=== PATIENT | female | born 1995 | race Caucasian/White ===

== ENCOUNTER 2016-06-30 15:59 | Emergency (ER) | payer MEDICAID ==
[~2016-06-30] VITALS: Ht 157.5 cm; Wt 43.5 kg
[~2016-06-30 15:59] MED LIST: BENZ56AE TP; DOCU100C37 PO; FERR240T9 PO; FERR325C PO; HYDR-757 PO; IBP600T1 PO; IBUP-1780 PO; LORA1TAB PO; NAPR-243 PO; NITR-65 PO; OXYC-465 PO; PHN100C PO; PRD5T PO; PREN1TAB19 PO; SULF1TAB7 PO; [UNRECOGNIZED DRUG - CODE] PO
--- OUTSIDE RECORDS SUMMARY | 2016-06-30 16:03 | XMS REPORT | Continuity of Care Document ---
Author Author [facility] Organization [facility] Address Unknown Phone Unavailable Care Team Providers Care Annealer Name Role Phone MACARENA GRAY MD PCP Insurance Providers Payer Name Policy Number Subscriber Name Relationship [employer] [id number] Roya Adame N 18 Self / Same As Patient Advance Directives Directive Response Recorded Date/Time Advance Directives No 12/13/13 5:46pm Organ Donor Yes 12/13/13 5:46pm Resuscitation Status Full Code 12/13/13 5:46pm Problems Medical Problems Problem Onset Date Status Closed head injury Unknown Active Closed head injury Unknown Active Sprain of ankle, left Unknown Active Medications Medication Dose Route Sig Days/Qty Instructions Order Date Discontinued Date Status Phenytoin Sodium 100 Mg PO THREE TIMES A DAY 30 Qty 06/27/11 Active Lorazepam 1 Mg PO 05/10/12 Active Social History Social History Problem Response Recorded Date/Time Alcohol Use Denies Use 12/13/2013 5:46pm Recreational Drug Use No 12/13/2013 5:46pm Smoking Status Current Everyday Smoker 12/13/2013 5:46pm Query Response Start Date Stop Date Smoking Status Current Everyday Smoker Hospital Discharge Instructions No hospital discharge instructions. Plan of Care No plan of care. Functional Status No functional status results. Allergies, Adverse Reactions, Alerts Allergen Type Severity Reaction Status Last Updated No Known Drug Allergies Active 08/19/10 Immunizations Name Given Type Date of Influenza Vaccine 05/08/12 Historical Vital Signs Acute Vital Signs Vital Response Date/Time Temperature (Fahrenheit) 96.5 degrees F (97.6 - 99.5) Temperature Source Temporal Pulse Rate (Adolescent 12-19yrs) 74 bpm (56 - 106) Respiratory Rate (Adolescent 12-19yrs) 16 bpm (15 - 20) Blood Pressure / Blood Pressure Systolic (Adolescent 12-19yrs) 101 mm Hg (115 - 120) Pain Pain Intensity 7 Height (Feet) 5 feet Height (Inches) 2 inches Height (Calculated Centimeters) 157.745378 cm Weight (Pounds) 110 pounds Weight (Calculated Grams) 29715.754 gm Weight (Calculated Kilograms) 49.587985 kilograms Calculated BMI 20.12 Results Test Source Date Result Interp. Ref. Range Comments Acetaminophen Screen June 27, 2011 12:45pm NEGATIVE - APAP= ACETAMINOPHEN/PARACETAMOL Alanine Aminotransferase (ALT/SGPT) November 11, 2013 11:25pm 23 U/L N 0-55 Albumin November 11, 2013 11:25pm 4.1 G/DL N 3.2-4.5 Alkaline Phosphatase November 11, 2013 11:25pm 78 U/L N 60-350 Aspartate Amino Transf (AST/SGOT) November 11, 2013 11:25pm 18 U/L N 5-34 BUN/Creatinine Ratio November 11, 2013 11:25pm 21 - Basophils # (Auto) November 11, 2013 11:25pm 0.1 10^3/uL N 0.0-0.1 Basophils (%) (Auto) November 11, 2013 11:25pm 1 % N 0-10 Blood Urea Nitrogen November 11, 2013 11:25pm 17 MG/DL N 7-18 Calcium Level November 11, 2013 11:25pm 9.7 MG/DL N 8.5-10.1 Carbon Dioxide Level November 11, 2013 11:25pm 24 MMOL/L N 21-32 Chloride Level November 11, 2013 11:25pm 107 MMOL/L N 98-107 Creatinine November 11, 2013 11:25pm 0.80 MG/DL N 0.60-1.30 Eosinophils # (Auto) November 11, 2013 11:25pm 0.1 10^3/uL N 0.0-0.3 Eosinophils (%) (Auto) November 11, 2013 11:25pm 1 % N 0-10 Glucose Level November 11, 2013 11:25pm 88 MG/DL N 70-105 Hematocrit November 11, 2013 11:25pm 39 % N 35-52 Hemoglobin November 11, 2013 11:25pm 14.1 G/DL N 11.5-16.0 Lymphocytes # (Auto) November 11, 2013 11:25pm 1.7 X 10^3 N 1.0-4.0 Lymphocytes (%) (Auto) November 11, 2013 11:25pm 20 % N 12-44 Mean Corpuscular Hemoglobin November 11, 2013 11:25pm 32 PG N 25-34 Mean Corpuscular Hemoglobin Concent November 11, 2013 11:25pm 36 G/DL N 32- 36 Mean Corpuscular Volume November 11, 2013 11:25pm 88 FL N 80-99 Mean Platelet Volume November 11, 2013 11:25pm 9.1 FL N 7.4-10.4 Methadone Level July 23, 2011 9:37am NEG - Monocytes # (Auto) November 11, 2013 11:25pm 0.8 X 10^3 N 0.0-1.0 Monocytes (%) (Auto) November 11, 2013 11:25pm 9 % N 0-12 Neutrophils # (Auto) November 11, 2013 11:25pm 5.8 X 10^3 N 1.8-7.8 Neutrophils (%) (Auto) November 11, 2013 11:25pm 70 % N 42-75 Opiates Screen July 23, 2011 9:37am NEG - Platelet Count November 11, 2013 11:25pm 301 10^3/uL N 130-400 Potassium Level November 11, 2013 11:25pm 3.7 MMOL/L N 3.6-5.0 Red Blood Count November 11, 2013 11:25pm 4.47 10^6/uL N 4.35-5.85 Red Cell Distribution Width November 11, 2013 11:25pm 11.9 % N 10.0-14.5 Sodium Level November 11, 2013 11:25pm 141 MMOL/L N 135-145 Total Bilirubin November 11, 2013 11:25pm 0.7 MG/DL N 0.1-1.0 Total Protein November 11, 2013 11:25pm 7.4 G/DL N 6.4-8.2 Urine Acetaminophen Level July 23, 2011 9:37am NEG - Urine Drug Screen Other July 23, 2011 9:37am NEG - Interpretative data is available online at:[email or web address] Enter Test Number: [id number] URINE DRUG SCREEN FOR MEDICAL PURPOSES ONLY. Urine Marijuana (THC) July 23, 2011 9:37am NEG - CREATININE URINE INTERPRETIVE DATA No normal range is available for random urine creatinine. Values are affected by hydration and kidney function of the patient. Urine Phencyclidine (PCP) Level July 23, 2011 9:37am NEG - White Blood Count November 11, 2013 11:25pm 8.3 10^3/uL N 4.3-11.0 Urine Creatinine (Tox) July 23, 2011 9:37am 137 MG/DL - Estimat Glomerular Filtration Rate November 11, 2013 11:25pm > 60 - GFR INTERPRETIVE DATA UNITS FOR ESTIMATED GFR (eGFR): mL/min/1.73 M2 REFERENCE RANGE FOR ESTIMATED GFR (eGFR) eGFR NORMAL eGFR >60 MODERATELY DECREASED eGFR 30-59 SEVERLY DECREASED eGFR 15-29 KIDNEY FAILURE <15 (OR DIALYSIS) Urine Ethyl Alcohol Screen July 23, 2011 9:37am NEG - Interpretative data is available online at:[email or web address] Enter Test Number:[id number] Urine Salicylate Screen July 23, 2011 9:37am NEG - Procedures No known history of procedures. Encounters Encounter Location Date/Time Departed Emergency Room Via [facility] 12/13/13 5:39pm Recent Diagnosis
[2016-06-30 17:18] LABS: BASOPHILS % (AUTO) 1 % (0-10); EOSINOPHILS # (AUTO) 0.1 10^3/uL (0.0-0.3); EOSINOPHILS % (AUTO) 1 % (0-10); LYMPHOCYTES # (AUTO) 2.1 X 10^3 (1.0-4.0); LYMPHOCYTES % (AUTO) 24 % (12-44); MEAN CORPUSCULAR HEMOGLOBIN 30 PG (25-34); MEAN CORPUSCULAR HGB CONC 35 G/DL (32-36); MEAN CORPUSCULAR VOLUME 86 FL (80-99); MEAN PLATELET VOLUME 9.5 FL (7.4-10.4); MONOCYTES # (AUTO) 0.6 X 10^3 (0.0-1.0); MONOCYTES % (AUTO) 7 % (0-12); NEUTROPHILS % (AUTO) 68 % (42-75); PLATELET COUNT 301 10^3/uL (130-400); RED BLOOD COUNT 4.49 10^6/uL (4.35-5.85); WHITE BLOOD COUNT 8.9 10^3/uL (4.3-11.0)
[2016-06-30 17:19] LABS: BILIRUBIN,URINE NEGATIVE (NEGATIVE); KETONES,URINE NEGATIVE (NEGATIVE); LEUKOCYTE ESTERASE ,URINE 2+ (NEGATIVE); NITRITE,URINE NEGATIVE (NEGATIVE); PH,URINE 7 (5-9); PROTEIN,URINE 1+ (NEGATIVE); UROBILINOGEN,URINE 1 MG/DL (NORMAL)
[2016-06-30 17:34] LABS: SQUAMOUS EPITHELIAL CELL,UR >50 /HPF
[2016-06-30 17:41] LABS: ALANINE AMINOTRANSFERASE 11 U/L (0-55); ALBUMIN 4.4 G/DL (3.2-4.5); ANION GAP 10 MMOL/L (5-14); ASPARTATE AMINO TRANSFERASE 14 U/L (5-34); BILIRUBIN,TOTAL 0.6 MG/DL (0.1-1.0); BLOOD UREA NITROGEN 13 MG/DL (7-18); BUN/CREATININE RATIO 18; CALCIUM 9.4 MG/DL (8.5-10.1); CARBON DIOXIDE 18 MMOL/L (21-32); CHLORIDE 110 MMOL/L (98-107); CREATININE SERUM 0.73 MG/DL (0.60-1.30); GFR ESTIMATED > 60; GLUCOSE 107 MG/DL (70-105); POTASSIUM 3.7 MMOL/L (3.6-5.0); SODIUM 138 MMOL/L (135-145); TOTAL PROTEIN 7.1 G/DL (6.4-8.2)
--- NOTE | 2016-06-30 17:49 | ED Neurological Problem ---
General Chief Complaint: Neurological Problems Stated Complaint: SEIZURE Nursing Triage Note: Pt to triage room via wheelchair. Male w/ pt states pt has been having a "seizure" just [employer] DES[employer]IST and has continued to get worse while in ED waiting room. Pt' s eyes open and pt able to answer questions, pt stutters when talking. Shaking of upper and lower extremities noted. Pt making purposeful movements with all extremities. Pt reports prior hx seizures and states she does not currently take any seizure medications. Nursing Sepsis Screen: No Definite Risk Source: patient Exam Limitations: no limitations History of Present Illness Time seen by provider: 17:48 Initial Comments To ER with reports of a seizure today. She states that she was sitting on a couch with some friends at home when she felt her seizure come on. This seizure manifested as "I was stuck inside my head" which is however her seizures have presented in the past and were treated with lorazepam. Timing/Duration: 4-6 hours Severity: mild Associated Symptoms: No confusion, No nausea/vomiting, No numbness in legs/feet , seizures Allergies and Home Medications Allergies Coded Allergies: No Known Drug Allergies (Unverified , 08/19/10) Home Medications Docusate Sodium 100 Mg Capsule #60 100 MG PO BID Prescribed by: BRITT MCGUIRE on 12/10/151948 Hydrocodone/Acetaminophen 1 Each Tablet #20 1 EACH PO Q6H PRN PRN BREAKTHROUGH PAIN Prescribed by: CHERYL BREAUX on 03/09/16 1507 Ibuprofen 800 Mg Tablet #60 800 MG PO Q6H Prescribed by: BRITT MCGUIRE on 12/10/151948 Oxycodone HCl/Acetaminophen 1 Each Tablet #30 1-2 TAB PO Q4H PRN PRN PAIN Prescribed by: BRITT MCGUIRE on 12/10/151948 Vit/Fe Fumarate/Fa 1 Each Tablet 1 EACH PO DAILY (Reported) Constitutional: see HPI Eyes: No Symptoms Reported Ears, Nose, Mouth, Throat: no symptoms reported Respiratory: no symptoms reported Cardiovascular: no symptoms reported Genitourinary: no symptoms reported Musculoskeletal: no symptoms reported Skin: no symptoms reported Psychiatric/Neurological: See HPI Endocrine: No Symptoms Reported Past Qokwqkg-Swqkwj-Bljvqd Hx Patient Social History Alcohol Use: Denies Use Recreational Drug Use: No Smoking Status: Current Everyday Smoker Type Used: Cigarettes Recent Foreign Travel: No Contact w/Someone Who Travel: No Recent Infectious Disease Expo: No Recent Hopitalizations: No Immunizations Up To Date Tetanus Booster (TDap): Unknown PED Vaccines UTD: No Date of Influenza Vaccine: Feb 02, 2014 Seasonal Allergies Seasonal Allergies: Yes Surgeries HX Surgeries: No Respiratory Hx Respiratory Disorders: No Cardiovascular Hx Cardiac Disorders: No Neurological Hx Neurological Disorders: Yes Neurological Disorders: Seizure Disorder Reproductive System Hx Reproductive Disorders: No Sexually Transmitted Disease: No HIV/AIDS: No Female 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 Genitourinary Hx Genitourinary Disorders: No Gastrointestinal Hx Gastrointestinal Disorders: No Musculoskeletal Hx Musculoskeletal Disorders: No Endocrine Hx Endocrine Disorders: No HEENT HX ENT Disorders: No Cancer Hx Cancer: No Psychosocial Hx Psychiatric Problems: No Integumentary HX Skin/Integumentary Disorder: No Blood Transfusions Hx Blood Disorders: No Adverse Reaction to a Blood Tr: No Family Medical History Family Medial History: Alcoholism 19 FATHER (father) Colon cancer 19 MOTHER (maternal great grandmother ) Diabetes mellitus 19 FATHER (paternal grandmother.,) Headache disorder 19 MOTHER (mother) Hypercholesterolemia 19 MOTHER (mother) Hypertension 19 MOTHER (maternal great grandfather) Kidney disease 19 MOTHER (maternal grandmother) No Family History of: AIDS Abdominal aortic aneurysm [place]'s disease Alzheimer's disease Aphasia Arthritis Asthma Cancer of mouth Cardiovascular disease Cataracts Completed stroke Congenital disease Congenital heart disease Coronary thrombosis Cystic fibrosis Deafness or hearing loss Dementia Drug abuse Dysphasia Fibrocystic disease of breast Gastroenteritis Glaucoma Infertility Myocardial infarction Neoplasm Not obtainable due to adoption Osteoporosis Parkinson's disease Prostate cancer Psychosocial problem Respiratory disorder Seizure disorder Severe allergy Thyroid disease Tuberculosis Visual disorder Physical Exam Vital Signs Vital Sign - Last 12Hours 06/30/16 16:43 Temp 98.0 Pulse 92 Resp 18 B/P 108/65 Pulse Ox 97 O2 Delivery Room Air Capillary Refill : Less Than 3 Seconds General Appearance: WD/WN no apparent distress HEENT: PERRL/EOMI normal ENT inspection Neck: non-tender full range of motion Respiratory: no respiratory distress no accessory muscle use Cardiovascular: regular rate, rhythm no murmur Gastrointestinal: normal bowel sounds non tender soft Neurologic/Psychiatric: alert normal mood/affect oriented x 3 Crainal Nerves: normal hearing normal speech PERRL Focused Exam Lactic Acid Level Laboratory Tests Test 06/30/16 17:11 Alanine Aminotransferase (ALT/SGPT) 11U/L (0-55) Albumin 4.4G/DL (3.2-4.5) Alkaline Phosphatase 65U/L (40-136) Anion Gap 10MMOL/L (5-14) Aspartate Amino Transf (AST/SGOT) 14U/L (5-34) BUN/Creatinine Ratio 18 Blood Urea Nitrogen 13MG/DL (7-18) Calcium Level 9.4MG/DL (8.5-10.1) Carbon Dioxide Level 18MMOL/L (21-32) L Chloride Level 110MMOL/L (98-107) H Creatinine 0.73MG/DL (0.60-1.30) Estimat Glomerular Filtration Rate > 60 Glucose Level 107MG/DL (70-105) H Potassium Level 3.7MMOL/L (3.6-5.0) Sodium Level 138MMOL/L (135-145) Total Bilirubin 0.6MG/DL (0.1-1.0) Total Protein 7.1G/DL (6.4-8.2) Progress/Results/Core Measures Results/Orders Lab Results Laboratory Tests Test 06/30/16 17:11 Range/Units Alanine Aminotransferase (ALT/SGPT) 11 0-55 U/L Albumin 4.4 3.2-4.5 G/DL Alkaline Phosphatase 65 40-136 U/L Anion Gap 10 5-14 MMOL/L Aspartate Amino Transf (AST/SGOT) 14 5-34 U/L BUN/Creatinine Ratio 18 Basophils # (Auto) 0.0 0.0-0.1 10^3/uL Basophils (%) (Auto) 1 0-10 % Blood Urea Nitrogen 13 7-18 MG/DL Calcium Level 9.4 8.5-10.1 MG/DL Carbon Dioxide Level 18 L 21-32 MMOL/L Chloride Level 110 H 98-107 MMOL/L Creatinine 0.73 0.60-1.30 MG/DL Eosinophils # (Auto) 0.1 0.0-0.3 10^3/uL Eosinophils (%) (Auto) 1 0-10 % Estimat Glomerular Filtration Rate > 60 Glucose Level 107 H 70-105 MG/DL Hematocrit 39 35-52 % Hemoglobin 13.4 11.5-16.0 G/DL Lymphocytes # (Auto) 2.1 1.0-4.0 X 10^3 Lymphocytes (%) (Auto) 24 12-44 % Mean Corpuscular Hemoglobin 30 25-34 PG Mean Corpuscular Hemoglobin Concent 35 32-36 G/DL Mean Corpuscular Volume 86 80-99 FL Mean Platelet Volume 9.5 7.4-10.4 FL Monocytes # (Auto) 0.6 0.0-1.0 X 10^3 Monocytes (%) (Auto) 7 0-12 % Neutrophils # (Auto) 6.0 1.8-7.8 X 10^3 Neutrophils (%) (Auto) 68 42-75 % Platelet Count 301 130-400 10^3/uL Potassium Level 3.7 3.6-5.0 MMOL/L Red Blood Count 4.49 4.35-5.85 10^6/uL Red Cell Distribution Width 13.0 10.0-14.5 % Sodium Level 138 135-145 MMOL/L Total Bilirubin 0.6 0.1-1.0 MG/DL Total Protein 7.1 6.4-8.2 G/DL Ur Tricyclic Antidepressants Screen NEGATIVE NEGATIVE Urine Amphetamines Screen NEGATIVE NEGATIVE Urine Bacteria FEW H /HPF Urine Barbiturates Screen NEGATIVE NEGATIVE Urine Benzodiazepines Screen NEGATIVE NEGATIVE Urine Bilirubin NEGATIVE NEGATIVE Urine Cannabinoids Screen POSITIVE H NEGATIVE Urine Casts NONE /LPF Urine Clarity SLIGHTLY CLOUDY Urine Cocaine Screen NEGATIVE NEGATIVE Urine Color YELLOW Urine Crystals NONE /LPF Urine Culture Indicated YES Urine Glucose (UA) NEGATIVE NEGATIVE Urine Ketones NEGATIVE NEGATIVE Urine Leukocyte Esterase 2+ H NEGATIVE Urine Methadone Screen NEGATIVE NEGATIVE Urine Methamphetamines Screen NEGATIVE NEGATIVE Urine Mucus MODERATE H /LPF Urine Nitrite NEGATIVE NEGATIVE Urine Opiates Screen NEGATIVE NEGATIVE Urine Oxycodone Screen NEGATIVE NEGATIVE Urine Phencyclidine Screen NEGATIVE NEGATIVE Urine Propoxyphene Screen NEGATIVE NEGATIVE Urine Protein 1+ H NEGATIVE Urine RBC 10-25 H /HPF Urine RBC (Auto) 2+ H NEGATIVE Urine Specific [place] 1.015 L 1.016-1.022 Urine Squamous Epithelial Cells >50 H /HPF Urine Urobilinogen 1 NORMAL MG/DL Urine WBC 5-10 H /HPF Urine pH 7 5-9 White Blood Count 8.9 4.3-11.0 10^3/uL My Orders Orders-TANK DE JESUS [employer] Cbc With Automated Diff (06/30/16 16:52) Comprehensive Metabolic Panel (06/30/16 16:52) Ua Culture If Indicated (06/30/16 16:52) Drug Screen Stat (Urine) (06/30/16 16:52) Saline Lock/Iv-Start (06/30/16 16:52) Urine Culture (06/30/16 17:11) Lorazepam Injection (Ativan Injection) (06/30/16 18:00) Vital Signs/I&O Vital Sign - Last 12Hours 06/30/16 16:43 Temp 98.0 Pulse 92 Resp 18 B/P 108/65 Pulse Ox 97 O2 Delivery Room Air Blood Pressure Mean: 79 Departure Impression Impression: Primary Impression: Urinary tract infection Qualified Code: N30.00 - Acute cystitis without hematuria Disposition: HOME, SELF-CARE Condition: Stable Departure-Patient Inst. Decision time for Depature: 17:57 Referrals: NO,LOCAL PHYSICIAN (PCP/Family) Primary Care Physician Patient Instructions: Urinary Tract Infection, Adult (DC) Add. Discharge Instructions: All discharge instructions reviewed with patient and/or family. Voiced understanding. Scripts Sulfamethoxazole/Trimethoprim (Bactrim Ds Tablet)1 Each Tablet1 Each PO BID #10 TAB Prov:TANK DE JESUS APRN 06/30/16 TANK DE JESUS APRN Jun 30, 2016 17:49
[2016-06-30] MEDS ORDERED: SULF1TAB35 PO (17:58)
[2016-06-30] MEDS ORDERED: TRIM/SULFAMETH 160/800 (SEPTRA DS) TAB PO ONE (18:00)
[2016-06-30] MEDS ORDERED: LORazepam INJ 2 MG/ML (ATIVAN) VIAL IVP ONE (18:00)
[2016-06-30 18:22] VITALS: BP 102/60
== END 2016-06-30 18:22 | disposition home or self-care (01) ==
LOC: EDUNIT# 15:59 → ER 16:00
DX: G40.909 Epilepsy, unspecified, not intractable, without status epilepticus (principal); N30.91 Cystitis, unspecified with hematuria; F17.210 Nicotine dependence, cigarettes, uncomplicated
CPT/HCPCS: 36415; 80053; 80306; 81000; 85025; 87088; 96374

== ENCOUNTER 2019-04-01 14:48 | Emergency (ER) | payer SELFPAY ==
[~2019-04-01] VITALS: Ht 157 cm; Wt 43.0 kg
[~2019-04-01 14:48] MED LIST changes: +HYDR-4226 PO; -HYDR-757 PO; +SULF1TAB35 PO
[2019-04-01] MEDS ORDERED: IBUPROFEN TABLET 200 MG TAB PO STA (15:26)
--- NOTE | 2019-04-01 15:34 | ED Upper Extremity ---
General Chief Complaint: Upper Extremity Stated Complaint: POSS HAND INJ Nursing Triage Note: PT STATES ABOUT A WEEK AGO SHE HIT A SHEETROCK WALL ON THE CORNER WITH HER RT HAND, CC OF PAIN IN THE FIFTH DIGIT AND INTO WRIST. Nursing Sepsis Screen: No Definite Risk History of Present Illness Date Seen by Provider: Apr 01, 2019 Time Seen by Provider: 15:20 Initial Comments 23 year old female presents for right writs and hand pain, along the 5th metacarpal. She reports hitting a sheetrock wall approximately one week ago. Had some pain initially, but was tolerable, began to get worse today. She has not taken any Tylenol or ibuprofen for the pain. She is right-hand dominant. She denies any previous history of injuries to her right upper extremity. Onset: last week Pain/Injury Location: right wrist, right hand Method of Injury: direct blow Modifying Factors: Improves With Rest Allergies and Home Medications Allergies Coded Allergies: No Known Drug Allergies (Unverified , 08/19/10) Home Medications Docusate Sodium 100 Mg Capsule, 100 MG PO BID Prescribed by: BRITT MCGUIRE on 12/10/151948 Hydrocodone/Acetaminophen 1 Each Tablet, 1 EACH PO Q6H PRN for BREAKTHROUGH PAIN Prescribed by: CHERYL BREAUX on 03/09/16 1507 Ibuprofen 800 Mg Tablet, 800 MG PO Q6H Prescribed by: BRITT MCGUIRE on 12/10/151948 Oxycodone HCl/Acetaminophen 1 Each Tablet, 1-2 TAB PO Q4H PRN for PAIN Prescribed by: BRITT MCGUIRE on 12/10/151948 Vit/Fe Fumarate/Fa 1 Each Tablet, 1 EACH PO DAILY, (Reported) Sulfamethoxazole/Trimethoprim 1 Each Tablet, 1 EACH PO BID Prescribed by: TANK DE JESUS on 06/30/16 1758 Patient Home Medication List Home Medication List Reviewed: Yes Review of Systems Constitutional: no symptoms reported, see HPI Musculoskeletal: see HPI, joint pain (right wrist ulnar side), joint swelling (fifth MCP, right hand.) All Other Systems Reviewed Negative Unless Noted: Yes Past Ecuvbdd-Etupvy-Yvvchv Hx Past Med/Social Hx: Reviewed Nursing Past Med/Soc Hx Patient Social History Alcohol Use: Rarely Uses Recreational Drug Use: No Smoking Status: Current Someday Smoker Type Used: Cigarettes Recent Foreign Travel: No Contact w/Someone Who Travel: No Recent Infectious Disease Expo: No Recent Hopitalizations: No Physical Abuse: No Sexual Abuse: No Mistreated: No Fear: No Immunizations Up To Date Tetanus Booster (TDap): Unknown PED Vaccines UTD: No Date of Influenza Vaccine: Feb 02, 2014 Seasonal Allergies Seasonal Allergies: Yes Past Medical History Surgeries: No Respiratory: No Cardiac: No Neurological: Yes Seizure Disorder : No (IUD) Last Menstrual Period: Mar 29, 2019 Reproductive Disorders: No Female Reproductive Disorders: Denies [employer]CHITECT History: IUD Sexually Transmitted Disease: No HIV/AIDS: No Genitourinary: No Gastrointestinal: No Musculoskeletal: No Endocrine: No HEENT: No Cancer: No Psychosocial: No Integumentary: No Blood Disorders: No Adverse Reaction/Blood Tranf: No Family Medical History Alcoholism 19 FATHER (father) Colon cancer 19 MOTHER (maternal great grandmother ) Diabetes mellitus 19 FATHER (paternal grandmother.,) Headache disorder 19 MOTHER (mother) Hypercholesterolemia 19 MOTHER (mother) Hypertension 19 MOTHER (maternal great grandfather) Kidney disease 19 MOTHER (maternal grandmother) No Family History of: AIDS Abdominal aortic aneurysm Kostas's disease Alzheimer's disease Aphasia Arthritis Asthma Cancer of mouth Cardiovascular disease Cataracts Completed stroke Congenital disease Congenital heart disease Coronary thrombosis Cystic fibrosis Deafness or hearing loss Dementia Drug abuse Dysphasia Fibrocystic disease of breast Gastroenteritis Glaucoma Infertility Myocardial infarction Neoplasm Not obtainable due to adoption Osteoporosis Parkinson's disease Prostate cancer Psychosocial problem Respiratory disorder Seizure disorder Severe allergy Thyroid disease Tuberculosis Visual disorder Physical Exam Vital Signs Vital Signs - First Documented 04/01/19 15:04 Temp 36.5 Pulse 70 Resp 18 B/P (MAP) 111/75 (87) Pulse Ox 100 O2 Delivery Room Air Capillary Refill : Less Than 3 Seconds Height, Weight, BMI Height: 5'2" Weight: 96lbs. 3.0oz. 43.247961uy; 17.00 BMI Method:Stated General Appearance: WD/WN, no apparent distress Cardiovascular: normal peripheral pulses, regular rate, rhythm Respiratory: chest non-tender, lungs clear, normal breath sounds Wrist: Yes normal inspection, Yes normal ROM, Yes bone tenderness (distal ulna); No deformity, No limited ROM Hand: normal inspection, normal ROM, Right, bone tenderness (fifth metacarpal), soft tissue tenderness Neurologic/Tendon: normal sensation, normal motor functions, normal tendon functions Neurologic/Psychiatric: no motor/sensory deficits, alert, normal mood/affect, oriented x 3 Progress/Results/Core Measures Results/Orders My Orders Orders - NADYA ALCARAZ Wrist, Right, 3 Views Or More (04/01/19 15:26) Hand, Right, 3 Views (04/01/19 15:26) Urine Bedside (04/01/19 15:26) Ibuprofen Tablet (Motrin Tablet) (04/01/19 15:26) Vital Signs/I&O 04/01/19 04/01/19 15:04 15:34 Temp 36.5 36.5 Pulse 70 Resp 18 B/P (MAP) 111/75 (87) Pulse Ox 100 O2 Delivery Room Air Blood Pressure Mean: 87 Diagnostic Imaging Diagonstic Imaging: Xray Plain Films/CT/US/NM/MRI: other Comments NAME: BERNYNOELLE N MED REC#: [id number] PT STATUS: REG ER : 1995 PHYSICIAN: NADYA ALCARAZ ADMIT DATE: 04/01/19/ER Signed Date of Exam:04/01/19 WRIST, RIGHT, 3 VIEWS OR MORE Indication: Right wrist injury 3 views the right wrist show no fracture, dislocation or other acute abnormalities. IMPRESSION: Negative right wrist Dictated by: Dictated on workstation # [id number] Dict: 04/01/19 155 Trans: 04/01/19 1552 [id number] Interpreted by: KAT VIVAR MD Electronically signed by: KAT VIVAR MD 04/01/19 155 Reviewed: Reviewed by Me Diagonstic Imaging: Xray Plain Films/CT/US/NM/MRI: hand Comments NAME: SCARVERENANOELLE N MED REC#: [id number] PT STATUS: REG ER : 1995 PHYSICIAN: NADYA ALCARAZ ADMIT DATE: 04/01/19/ER Signed Date of Exam:04/01/19 HAND, RIGHT, 3 VIEWS Indication: Right hand injury 3 views of the right hand show no fracture, dislocation or other acute abnormalities. IMPRESSION: Negative right hand Dictated by: Dictated on workstation # [id number] Dict: 04/01/19 1553 Trans: 04/01/19 1553 [id number] Interpreted by: KAT VIVAR MD Electronically signed by: KAT VIVAR MD 04/01/19 1553 Reviewed: Reviewed by Me Departure Impression Primary Impression: Contusion of multiple sites of right hand and wrist Qualified Codes: S60.221A - Contusion of right hand, initial encounter; S60.211A - Contusion of right wrist, initial encounter Disposition: HOME, SELF-CARE Condition: Improved Departure-Patient Inst. Decision time for Depature: 16:00 Referrals: [facility],LOCAL PHYSICIAN (PCP) Primary Care Physician Patient Instructions: Hand Pain (DC), Wrist Sprain (DC) Add. Discharge Instructions: Ice to right hand and wrist 20 minutes every 2 hours while awake. Alternate between Tylenol 650 mg and ibuprofen 600 mg every 4 hours for pain. Rodrigue wrap to right hand and wrist as needed. Follow-up with the primary care provider if your symptoms are not improving or worsen. Return to the emergency department for new, urgent health care needs. All discharge instructions reviewed with patient and/or family. Voiced understanding. NADYA ALCARAZ Apr 01, 2019 15:34
--- NOTE | 2019-04-01 15:54 | Diagnostic Imaging Report ---
Indication: Right hand injury 3 views of the right hand show no fracture, dislocation or other acute abnormalities. IMPRESSION: Negative right hand Dictated by: Dictated on workstation # [id number]
--- NOTE | 2019-04-01 15:54 | Diagnostic Imaging Report ---
Indication: Right wrist injury 3 views the right wrist show no fracture, dislocation or other acute abnormalities. IMPRESSION: Negative right wrist Dictated by: Dictated on workstation # [id number]
[2019-04-01 16:14] VITALS: BP 111/75
== END 2019-04-01 16:14 | disposition home or self-care (01) ==
LOC: EDUNIT# 14:48 → ER 14:49
DX: S60.221A Contusion of right hand, initial encounter (principal); S60.211A Contusion of right wrist, initial encounter; G40.909 Epilepsy, unspecified, not intractable, without status epilepticus; F17.210 Nicotine dependence, cigarettes, uncomplicated; Z80.0 Family history of malignant neoplasm of digestive organs; Z82.49 Family history of ischemic heart disease and other diseases of the circulatory system; W22.8XXA Striking against or struck by other objects, initial encounter
CPT/HCPCS: 73110; 73130; 84703

== ENCOUNTER 2020-10-04 16:19 | Emergency (ER) | payer SELFPAY ==
[~2020-10-04] VITALS: Ht 157.5 cm; Wt 42.2 kg
[~2020-10-04 16:19] MED LIST changes: -OXYC-465 PO; +OXYC-556 PO
--- NOTE | 2020-10-04 16:31 | ED Abdominal Pain ---
General Stated Complaint: R SIDE PAIN / FEVER Source of Information: Patient Exam Limitations: No Limitations History of Present Illness Date Seen by Provider: Oct 04, 2020 Time Seen by Provider: 16:45 Initial Comments This is a well appearing 25 yo female who presented to the ER with c/o right flank pain, dysuria, and fever x 3 days. Pain is 8/10, sharp, and constant. Applied Deep Blue and soaked in Epsom salt bath. Reports some nausea without emesis. LMP ended yesterday. Allergies and Home Medications Allergies Coded Allergies: No Known Drug Allergies (Unverified , 08/19/10) Home Medications Ciprofloxacin HCl 500 Mg Tablet, 500 MG PO BID Prescribed by: GEORGE MONTOYA on 10/04/201909 Docusate Sodium 100 Mg Capsule, 100 MG PO BID Prescribed by: BRITT MCGUIRE on 12/10/151948 Hydrocodone/Acetaminophen 1 Each Tablet, 1 EACH PO Q6H PRN for BREAKTHROUGH PAIN Prescribed by: CHERYL BREAUX on 03/09/16 1507 Ibuprofen 800 Mg Tablet, 800 MG PO Q6H Prescribed by: BRITT MCGUIRE on 12/10/151948 Oxycodone HCl/Acetaminophen 1 Each Tablet, 1-2 TAB PO Q4H PRN for PAIN Prescribed by: BRITT MCGUIRE on 12/10/151948 Vit/Fe Fumarate/Fa 1 Each Tablet, 1 EACH PO DAILY, (Reported) Sulfamethoxazole/Trimethoprim 1 Each Tablet, 1 EACH PO BID Prescribed by: TANK DE JESUS on 06/30/161757 Patient Home Medication List Home Medication List Reviewed: Yes Review of Systems Review of Systems Constitutional: chills, fever EENTM: No Symptoms Reported Respiratory: No Symptoms Reported Cardiovascular: No Symptoms Reported Gastrointestinal: See HPI Genitourinary: See HPI Musculoskeletal: no symptoms reported Skin: no symptoms reported Psychiatric/Neurological: No Symptoms Reported Endocrine: No Symptoms Reported Hematologic/Lymphatic: No Symptoms Reported Past Unkuetj-[id number]-[id number] Hx Patient Social History Type Used: Cigarettes Recent Hopitalizations: No Immunizations Up To Date Tetanus Booster (TDap): Unknown PED Vaccines UTD: No Date of Influenza Vaccine: Feb 02, 2014 Seasonal Allergies Seasonal Allergies: Yes Past Medical History Surgeries: No Respiratory: No Cardiac: No Neurological: Yes Seizure Disorder Reproductive Disorders: No Female Reproductive Disorders: Denies [employer] History: IUD Sexually Transmitted Disease: No HIV/AIDS: No Genitourinary: No Gastrointestinal: No Musculoskeletal: No Endocrine: No HEENT: No Cancer: No Psychosocial: No Integumentary: No Blood Disorders: No Adverse Reaction/Blood Tranf: No Family Medical History Alcoholism 19 FATHER (father) Colon cancer 19 MOTHER (maternal great grandmother ) Diabetes mellitus 19 FATHER (paternal grandmother.,) Headache disorder 19 MOTHER (mother) Hypercholesterolemia 19 MOTHER (mother) Hypertension 19 MOTHER (maternal great grandfather) Kidney disease 19 MOTHER (maternal grandmother) No Family History of: AIDS Abdominal aortic aneurysm [place]'s disease Alzheimer's disease Aphasia Arthritis Asthma Cancer of mouth Cardiovascular disease Cataracts Completed stroke Congenital disease Congenital heart disease Coronary thrombosis Cystic fibrosis Deafness or hearing loss Dementia Drug abuse Dysphasia Fibrocystic disease of breast Gastroenteritis Glaucoma Infertility Myocardial infarction Neoplasm Not obtainable due to adoption Osteoporosis Parkinson's disease Prostate cancer Psychosocial problem Respiratory disorder Seizure disorder Severe allergy Thyroid disease Tuberculosis Visual disorder Physical Exam Vital Signs Vital Signs - First Documented 10/04/20 16:45 Temp 37.4 Pulse 112 Resp 18 B/P (MAP) 106/66 (79) Pulse Ox 97 O2 Delivery Room Air Capillary Refill : Height/Weight/BMI Height: 5'2" Weight: 96lbs. 3.0oz. [id number]; 17.00 BMI Method:Stated General Appearance: WD/WN, no apparent distress HEENT: PERRL/EOMI, normal ENT inspection Neck: full range of motion, normal inspection Respiratory: lungs clear, normal breath sounds Cardiovascular: regular rate, rhythm, no murmur Gastrointestinal: normal bowel sounds, soft; No rebound Extremities: normal range of motion, normal inspection Back: normal inspection, no vertebral tenderness, CVA tenderness (R) Neurologic/Psychiatric: no motor/sensory deficits, alert, normal mood/affect, oriented x 3 Skin: normal color, warm/dry Progress/Results/Core Measures Results/Orders Lab Results Laboratory Tests Test 10/04/20 16:45 10/04/20 16:52 Range/Units Urine Color YELLOW Urine Clarity CLEAR Urine pH 6.0 5-9 Urine Specific [place] 1.025 H 1.016-1.022 Urine Protein 2+ H NEGATIVE Urine Glucose (UA) NEGATIVE NEGATIVE Urine Ketones TRACE H NEGATIVE Urine Nitrite NEGATIVE NEGATIVE Urine Bilirubin NEGATIVE NEGATIVE Urine Urobilinogen 4.0 < = 1.0 MG/DL Urine Leukocyte Esterase 2+ H NEGATIVE Urine RBC (Auto) 2+ H NEGATIVE Urine RBC 0-2 /HPF Urine WBC TNTC H /HPF Urine Squamous Epithelial Cells 5-10 /HPF Urine Crystals NONE /LPF Urine Bacteria MODERATE H /HPF Urine Casts NONE /LPF Urine Mucus MODERATE H /LPF Urine Culture Indicated YES White Blood Count 13.1 H 4.3-11.0 10^3/uL Red Blood Count 4.63 3.80-5.11 10^6/uL Hemoglobin 14.4 11.5-16.0 g/dL Hematocrit 42 35-52 % Mean Corpuscular Volume 90 80-99 fL Mean Corpuscular Hemoglobin 31 25-34 pg Mean Corpuscular Hemoglobin Concent 34 32-36 g/dL Red Cell Distribution Width 11.5 10.0-14.5 % Platelet Count 274 130-400 10^3/uL Mean Platelet Volume 9.4 9.0-12.2 fL Immature Granulocyte % (Auto) 0 % Neutrophils (%) (Auto) 80 H 42-75 % Lymphocytes (%) (Auto) 10 L 12-44 % Monocytes (%) (Auto) 9 0-12 % Eosinophils (%) (Auto) 0 0-10 % Basophils (%) (Auto) 0 0-10 % Neutrophils # (Auto) 10.5 H 1.8-7.8 10^3/uL Lymphocytes # (Auto) 1.3 1.0-4.0 10^3/uL Monocytes # (Auto) 1.2 H 0.0-1.0 10^3/uL Eosinophils # (Auto) 0.0 0.0-0.3 10^3/uL Basophils # (Auto) 0.0 0.0-0.1 10^3/uL Immature Granulocyte # (Auto) 0.0 0.0-0.1 10^3/uL Sodium Level 141 135-145 MMOL/L Potassium Level 3.4 L 3.6-5.0 MMOL/L Chloride Level 102 98-107 MMOL/L Carbon Dioxide Level 24 21-32 MMOL/L Anion Gap 15 H 5-14 MMOL/L Blood Urea Nitrogen 13 7-18 MG/DL Creatinine 0.74 0.60-1.30 MG/DL Estimat Glomerular Filtration Rate > 60 BUN/Creatinine Ratio 18 Glucose Level 107 H 70-105 MG/DL Calcium Level 10.1 8.5-10.1 MG/DL Corrected Calcium 8.5-10.1 MG/DL Total Bilirubin 1.1 H 0.1-1.0 MG/DL Aspartate Amino Transf (AST/SGOT) 13 5-34 U/L Alanine Aminotransferase (ALT/SGPT) 10 0-55 U/L Alkaline Phosphatase 69 40-136 U/L C-Reactive Protein High Sensitivity 12.52 H 0.00-0.50 MG/DL Total Protein 8.1 6.4-8.2 GM/DL Albumin 4.6 H 3.2-4.5 GM/DL Micro Results Microbiology 10/04/20 Urine Culture - Preliminary, Resulted Gram Negative Bacillus 1 My Orders Orders - GEORGE MONTOYA APRN Ua Culture If Indicated (10/04/20 16:24) Urine Bedside (10/04/20 16:24) Ketorolac Injection (Toradol Injection) (10/04/20 17:30) Ondansetron Injection (Zofran Injectio (10/04/20 17:30) Cbc With Automated Diff (10/04/20 17:21) Comprehensive Metabolic Panel (10/04/20 17:21) Hs C Reactive Protein (10/04/20 17:21) Ct Abdomen/Pelvis W (10/04/20 17:21) Iohexol Injection (Omnipaque 350 Mg/Ml 1 (10/04/20 17:30) Received Contrast (Hold Metformin- Contr (10/04/20 17:30) Ns (Ivpb) (Sodium Chloride 0.9% Ivpb Bag (10/04/20 17:30) Urine Culture (10/04/20 16:45) Ceftriaxone (Rocephin) (10/04/20 19:15) Medications Given in ED Vital Signs/I&O 10/04/20 10/04/20 16:45 19:51 Temp 37.4 Pulse 112 94 Resp 18 16 B/P (MAP) 106/66 (79) 107/71 Pulse Ox 97 98 O2 Delivery Room Air Room Air Diagnostic Imaging Plain Films/CT/US/NM/MRI: abdomen, pelvis Comments [facility]. [place], [place] NAME: NOELLE ARRIETA [facility] REC#: [id number] PT STATUS: REG ER : 1995 PHYSICIAN: GEORGE MONTOYA WARRANTY CLERK ADMIT DATE: 10/04/20/ER Signed Date of Exam:10/04/20 CT ABDOMEN/PELVIS W EXAMINATION: CT abdomen and pelvis with intravenous contrast. TECHNIQUE: Multiple contiguous axial images were obtained through the abdomen and pelvis after the uneventful administration of intravenous contrast. All CT scans use one or more of the following dose optimizing techniques: automated exposure control, MA and/or KvP adjustment based on patient size and exam type or iterative reconstruction. HISTORY: RLQ abdominal pain COMPARISON: None available. FINDINGS: Lung bases: The lung bases are clear. Solid organs: The liver is normal without focal lesion. The gallbladder is normal. There is no biliary ductal dilation. Pancreas is normal. Spleen is normal. Adrenal glands are normal. There are patchy areas of cortical hypoattenuation within the right kidney. The left kidney is unremarkable. No hydronephrosis. Bowel: The stomach and small bowel are normal without obstruction. The colon and appendix are normal. Peritoneum: There is no intraperitoneal free fluid or free air. No suspicious lymphadenopathy. Vasculature: Normal without aneurysm. Musculoskeletal: No suspicious osseous lesion or compression fracture. Pelvis: An IUD is present within the uterine fundus. The urinary bladder is normal. IMPRESSION: 1. A striated nephrogram of the right kidney which is concerning for pyelonephritis. Recommend correlation with urinalysis and patient history. 2. No other acute abnormality in the abdomen or pelvis. Dictated by: Dictated on workstation # [id number] Dict: 10/04/20 184 Trans: 10/04/201901 [facility] [id number] Interpreted by: STEPHANIE VIVAR DO Electronically signed by: STEPHANIE VIVAR DO 10/04/201901 Reviewed: Reviewed by Me Departure Impression Primary Impression: Acute pyelonephritis Disposition: 01 HOME, SELF-CARE Condition: Improved Departure-Patient Inst. Decision time for Depature: 19:09 Referrals: [facility] (PCP/Family) Primary Care Physician Patient Instructions: Kidney Infection (DC) Add. Discharge Instructions: Plan: 1. Take antibiotics as directed and complete full course even if you begin to feel better. 2. Drink plenty of fluids. May take Tylenol or Ibuprofen as needed for pain per package. 3. Return to ER for any new, concerning, or worsening symptoms. Scripts Ciprofloxacin HCl (Ciprofloxacin HCl) 500 Mg Tablet 500 MG PO BID for 7 Days, #14 TAB 0 Refills Prov: GEORGE MONTOYA APRN 10/04/20 GEORGE MONTOYA APRN Oct 04, 2020 16:30
[2020-10-04] MEDS ORDERED: NS 100 ML (IVPB) BAG IV ONE (17:30)
[2020-10-04] MEDS ORDERED: ONDANSETRON 4 MG/2 ML (SDV) Z0FRAN IVP ONE (17:30)
[2020-10-04] MEDS ORDERED: KETOROLAC 30 MG/ML VIAL IVP ONE (17:30)
[2020-10-04] MEDS ORDERED: IOHEXOL 350 MG/ML 100 ML (OMNIPAQUE 350) VIAL IV ONE (17:30)
[2020-10-04] MEDS ORDERED: HOLD METFORMIN - RECEIVED CONTRAST 20 ML VIAL IV SCH (17:30)
[2020-10-04 17:31] LABS: BASOPHILS % (AUTO) 0 % (0-10); EOSINOPHILS % (AUTO) 0 % (0-10); HEMATOCRIT 42 % (35-52); HEMOGLOBIN 14.4 g/dL (11.5-16.0); LYMPHOCYTES # (AUTO) 1.3 10^3/uL (1.0-4.0); LYMPHOCYTES % (AUTO) 10 % (12-44); MEAN CORPUSCULAR HEMOGLOBIN 31 pg (25-34); MEAN CORPUSCULAR HGB CONC 34 g/dL (32-36); MEAN CORPUSCULAR VOLUME 90 fL (80-99); MEAN PLATELET VOLUME 9.4 fL (9.0-12.2); MONOCYTES # (AUTO) 1.2 10^3/uL (0.0-1.0); MONOCYTES % (AUTO) 9 % (0-12); NEUTROPHILS # (AUTO) 10.5 10^3/uL (1.8-7.8); NEUTROPHILS % (AUTO) 80 % (42-75); PLATELET COUNT 274 10^3/uL (130-400); WHITE BLOOD COUNT 13.1 10^3/uL (4.3-11.0)
[2020-10-04 17:32] LABS: ALBUMIN 4.6 GM/DL (3.2-4.5); CHLORIDE 102 MMOL/L (98-107); POTASSIUM 3.4 MMOL/L (3.6-5.0); SODIUM 141 MMOL/L (135-145)
[2020-10-04 17:33] LABS: CALCIUM 10.1 MG/DL (8.5-10.1)
[2020-10-04 17:34] LABS: GLUCOSE 107 MG/DL (70-105); TOTAL PROTEIN 8.1 GM/DL (6.4-8.2)
[2020-10-04 17:36] LABS: BILIRUBIN,TOTAL 1.1 MG/DL (0.1-1.0); CARBON DIOXIDE 24 MMOL/L (21-32)
[2020-10-04 17:38] LABS: ALKALINE PHOSPHATASE 69 U/L (40-136); CREATININE SERUM 0.74 MG/DL (0.60-1.30); GFR ESTIMATED > 60
[2020-10-04 17:39] LABS: BUN/CREATININE RATIO 18
[2020-10-04 17:41] LABS: ALANINE AMINOTRANSFERASE 10 U/L (0-55)
[2020-10-04 18:00] LABS: BILIRUBIN,URINE NEGATIVE (NEGATIVE); CLARITY,URINE CLEAR; COLOR,URINE YELLOW; GLUCOSE, URINE (UA) NEGATIVE (NEGATIVE); KETONES,URINE TRACE (NEGATIVE); LEUKOCYTE ESTERASE ,URINE 2+ (NEGATIVE); NITRITE,URINE NEGATIVE (NEGATIVE); PROTEIN,URINE 2+ (NEGATIVE)
[2020-10-04 18:32] LABS: BACTERIA,URINE MODERATE /HPF; RBC,URINE 0-2 /HPF; WBC,URINE TNTC /HPF
--- NOTE | 2020-10-04 18:55 | Diagnostic Imaging Report ---
EXAMINATION: CT abdomen and pelvis with intravenous contrast. TECHNIQUE: Multiple contiguous axial images were obtained through the abdomen and pelvis after the uneventful administration of intravenous contrast. All CT scans use one or more of the following dose optimizing techniques: automated exposure control, MA and/or KvP adjustment based on patient size and exam type or iterative reconstruction. HISTORY: RLQ abdominal pain COMPARISON: None available. FINDINGS: Lung bases: The lung bases are clear. Solid organs: The liver is normal without focal lesion. The gallbladder is normal. There is no biliary ductal dilation. Pancreas is normal. Spleen is normal. Adrenal glands are normal. There are patchy areas of cortical hypoattenuation within the right kidney. The left kidney is unremarkable. No hydronephrosis. Bowel: The stomach and small bowel are normal without obstruction. The colon and appendix are normal. Peritoneum: There is no intraperitoneal free fluid or free air. No suspicious lymphadenopathy. Vasculature: Normal without aneurysm. Musculoskeletal: No suspicious osseous lesion or compression fracture. Pelvis: An IUD is present within the uterine fundus. The urinary bladder is normal. IMPRESSION: 1. A striated nephrogram of the right kidney which is concerning for pyelonephritis. Recommend correlation with urinalysis and patient history. 2. No other acute abnormality in the abdomen or pelvis. Dictated by: Dictated on workstation # [id number]
[2020-10-04] MEDS ORDERED: CIPR500T5 PO (19:10)
[2020-10-04] MEDS ORDERED: cefTRIAXone 2,000 MG in WATER (STERILE) FOR INJECTION 20 ML IV ONE (19:15)
[2020-10-04 19:51] VITALS: BP 107/71
== END 2020-10-04 19:51 | disposition home or self-care (01) ==
LOC: EDUNIT# 16:19 → ER 16:21
DX: N10 Acute pyelonephritis (principal)
CPT/HCPCS: 36415; 74177; 80053; 81000; 84703; 85025; 86141; 87088